=== PATIENT | male | born 1965 | race Caucasian/White ===

== ENCOUNTER 2017-10-05 04:46 | Emergency (ER) | payer MEDICAID ==
[2017-10-05] MEDS: KETOROLAC 60 MG INJ IM (05:56)
[2017-10-05] MEDS: DEXAMETHASONE 10 MG/ML 1 ML INJ IM (05:56)
== END 2017-10-05 07:25 | disposition home or self-care (01) ==
LOC: FTE 04:46
DX: M25.551 Pain in right hip (principal); F17.210 Nicotine dependence, cigarettes, uncomplicated; Z79.82 Long term (current) use of aspirin; Z98.61 Coronary angioplasty status
CPT/HCPCS: 73510; 96372; 99284-25